=== PATIENT | female | born 1990 | race Caucasian/White ===

== ENCOUNTER → 2016-06-04 | Outpatient (CLI) | payer OTHER ==
[~2016-06-04] MED LIST: ACET50TA PO; IBUP80TA PO; MOTR200T44 PO; STUACAP PO
== END ==
LOC: M OUTALCOH 08:10
PROVIDERS: ATTEND Psychiatry & Neurology Psychiatry
DX: Z13.9 Encounter for screening, unspecified (principal); F12.20 Cannabis dependence, uncomplicated

== ENCOUNTER 2016-06-23 08:00 | Outpatient (RCR) | payer OTHER | END 2016-06-29 | LOC: M OUTALCOH 08:00 | PROVIDERS: ATTEND Psychiatry & Neurology Psychiatry | DX: F12.20 Cannabis dependence, uncomplicated (principal); F17.200 Nicotine dependence, unspecified, uncomplicated ==

== ENCOUNTER 2016-07-29 16:00 | Outpatient (RCR) | payer OTHER | END 2016-07-30 | LOC: M OUTALCOH 16:00 | PROVIDERS: ATTEND Psychiatry & Neurology Psychiatry | DX: F12.20 Cannabis dependence, uncomplicated (principal); F17.200 Nicotine dependence, unspecified, uncomplicated ==

== ENCOUNTER 2016-08-26 16:00 | Outpatient (RCR) | payer MEDICAID, SELFPAY | END 2016-08-29 | LOC: M OUTALCOH 16:00 | PROVIDERS: ATTEND Psychiatry & Neurology Psychiatry | DX: F12.20 Cannabis dependence, uncomplicated (principal); F17.200 Nicotine dependence, unspecified, uncomplicated ==

== ENCOUNTER → 2016-09-29 | Outpatient (RCR) | payer SELFPAY, MEDICAID | LOC: M OUTALCOH 09-04 08:00 | PROVIDERS: ATTEND Psychiatry & Neurology Psychiatry | DX: F12.20 Cannabis dependence, uncomplicated (principal); F17.200 Nicotine dependence, unspecified, uncomplicated ==

== ENCOUNTER 2016-10-27 16:00 | Outpatient (RCR) | payer MEDICAID, SELFPAY | END 2016-10-30 | LOC: M OUTALCOH 16:00 | PROVIDERS: ATTEND Psychiatry & Neurology Psychiatry | DX: F12.20 Cannabis dependence, uncomplicated (principal); F17.200 Nicotine dependence, unspecified, uncomplicated ==

== ENCOUNTER 2016-11-28 13:00 | Outpatient (RCR) | payer MEDICAID | END 2016-11-29 | LOC: M OUTALCOH 13:00 | PROVIDERS: ATTEND Psychiatry & Neurology Psychiatry | DX: F12.20 Cannabis dependence, uncomplicated (principal); F17.200 Nicotine dependence, unspecified, uncomplicated ==

== ENCOUNTER → 2017-04-28 | Outpatient (CLI) | payer OTHER ==
[2017-04-28 13:05] LABS: BASO % 0.4 % (0.0-1.0); EOS # 0.1 10^3/uL (0.0-0.50); EOS % 1.6 % (0.0-3.0); HEMOGLOBIN 13.1 g/dl (12.0-16.0); IMMATURE GRANULOCYTE % 0.2 % (0-3.0); LYMPH # 1.5 10^3/uL (1.5-6.5); LYMPH % 29.6 % (24.0-44.0); MEAN CORPUSCULAR HEMOGLOBIN 29.4 pg (27.0-33.0); MEAN CORPUSCULAR HGB CONC 33.6 g/dl (32.0-36.5); MEAN CORPUSCULAR VOLUME 87.6 fl (80.0-96.0); MONO # 0.4 10^3/uL (0.0-0.8); MONO % 7.3 % (0.0-5.0); NEUTROPHILS % 60.9 % (36.0-66.0); PLATELET COUNT, AUTOMATED 189 10^3/uL (150-450); RED BLOOD COUNT 4.45 10^6/uL (4.00-5.40); RED CELL DISTRIBUTION WIDTH 12.7 % (11.5-14.5); WHITE BLOOD COUNT 4.9 10^3/uL (4.0-10.0)
[2017-04-28 14:00] LABS: ALBUMIN 4.1 GM/DL (3.2-5.2); ALBUMIN/GLOBULIN RATIO 1.64 (1.00-1.93); ALKALINE PHOSPHATASE 43 U/L (45-117); ALT/SGPT 13 U/L (12-78); ANION GAP 8 MEQ/L (8-16); AST/SGOT 8 U/L (7-37); BILIRUBIN,TOTAL 1.1 MG/DL (0.2-1.0); BLOOD UREA NITROGEN 18 MG/DL (7-18); CALCIUM LEVEL 8.6 MG/DL (8.5-10.1); CARBON DIOXIDE LEVEL 26 MEQ/L (21-32); CHLORIDE LEVEL 107 MEQ/L (98-107); CREATININE FOR GFR 0.73 MG/DL (0.55-1.30); FREE T4 0.97 NG/DL (0.76-1.46); GLOMERULAR FILTRATION RATE > 60.0 (>60); GLUCOSE, FASTING 80 MG/DL (70-100); POTASSIUM SERUM 4.1 MEQ/L (3.5-5.1); SODIUM LEVEL 141 MEQ/L (136-145); TOTAL PROTEIN 6.6 GM/DL (6.4-8.2)
[2017-04-28 14:12] LABS: TOTAL 25(OH) VITAMIN D 21.8 NG/ML (30.0-100.0)
[2017-04-29 12:37] LABS: HIV 1&2 SCREEN CENTAUR NEGATIVE (NEGATIVE)
== END ==
LOC: M LAB 12:33
DX: Z11.4 Encounter for screening for human immunodeficiency virus [HIV] (principal)
CPT/HCPCS: 84443

== ENCOUNTER → 2019-09-07 | Outpatient (REF) | payer SELFPAY ==
[~2019-09-07] MED LIST changes: -ACET50TA PO; +MAPA500T17 PO; +MAPA500T2 PO
== END ==
LOC: M LAB REF 15:14
PROVIDERS: ATTEND Physician Assistant
DX: Z03.818 Encounter for observation for suspected exposure to other biological agents ruled out (principal); Z11.59 Encounter for screening for other viral diseases